=== PATIENT | female | born 1960 | race Caucasian/White ===

== ENCOUNTER 2021-05-20 07:58 | Day surgery (SDC) | payer OTHER ==
[2021-05-19 11:07] LABS: COVID AG,FIA SOURCE NASOPHARYNGEAL
[2021-05-19 11:10] LABS: BASOPHILS % (AUTO) 0.3 % (0.0-2.0); EOSINOPHILS % (AUTO) 3.4 % (1.0-6.0); HEMATOCRIT 32.3 % (36-46); HEMOGLOBIN 10.6 g/dL (12.0-16.0); LYMPHOCYTES # (AUTO) 0.9 K/uL (1.0-4.8); LYMPHOCYTES % (AUTO) 26.4 % (22.0-44.0); MEAN CORPUSCULAR HEMOGLOBIN 29.4 pg (26.0-34.0); MEAN CORPUSCULAR HGB CONC 32.8 G/dL (31.0-37.0); MEAN CORPUSCULAR VOLUME 90 fL (80-100); MONOCYTES # (AUTO) 0.5 K/uL (0.1-1.0); MONOCYTES % (AUTO) 14.6 % (2.0-9.0); NEUTROPHILS # (AUTO) 1.8 K/uL (1.8-7.7); NEUTROPHILS % (AUTO) 55.3 % (40.0-70.0); PLATELET COUNT (AUTO) 99 K/uL (150-450); RED BLOOD CELL COUNT(AUTO) 3.59 MIL/uL (4.00-5.20); RED CELL DISTRIBUTION WIDTH 15.3 % (11.5-14.5)
[2021-05-19 11:25] LABS: INR 1.4 (0.9-1.1); PROTHROMBIN TIME 14.7 SEC (9.4-11.6)
[2021-05-19 11:35] LABS: ANION GAP 9 mmol/L (8-16); CALCIUM, TOTAL 8.8 mg/dL (8.8-10.5); CARBON DIOXIDE 25 mmol/L (22-29); CHLORIDE 102 mmol/L (98-107); CREATININE 0.58 mg/dL (0.60-1.30); GLOMERULAR FILTR. RATE CALC > 60 mL/min (>60); GLUCOSE,RANDOM 109 mg/dL (70-110); SODIUM SERUM 136 mmol/L (136-145); UREA NITROGEN, BLOOD 13 mg/dL (7-18)
[2021-05-19 11:39] LABS: ALANINE AMINOTRANSFERASE 44 U/L (12-78); ALKALINE PHOSPHATASE 79 U/L (46-116); ASPARTATE AMINOTRANSFERASE 56 U/L (15-37); BILIRUBIN,TOTAL 0.9 mg/dL (0.1-1.0); TOTAL PROTEIN, SERUM 8.5 g/dL (6.4-8.2)
[~2021-05-20] VITALS: Ht 170.2 cm; Wt 81.8 kg
[~2021-05-20 07:58] MED LIST: APIX5TAB PO; ATOR40TA71 PO; FLEC50TA3 PO; FOLI-130 PO; FURO20TA4 PO; MAGN250T9 PO; METO-408 PO; MULT-1387 PO; POTA20TA83 PO; RINGERS SOLUTION,LACTATED 500 ML IV ONE; SODIUM CHLORIDE 0.9% 1,000 ML ONE; SPIR-37 PO; THIA100T92 PO
[2021-05-20] MEDS ORDERED: SODIUM CHLORIDE 0.9% 1,000 ML IV ONE (08:30)
[2021-05-20 13:31] LABS: SPECIMENTYPE,BODY FLUID PARACENTESIS
[2021-05-20 14:02] LABS: APPEARANCE,SPUN,BODY FLUID CLEAR (CLEAR); APPEARANCE,UNSPUN,BODY FLUID HAZY (CLEAR); COLOR,BODY FLUID YELLOW (LT YELLOW); TOTAL VOLUME,BODY FLUID 3125 mL
[2021-05-20 14:10] LABS: LYMPHOCYTES,BODY FLUID 46 %; MONOCYTES,BODY FLUID 3 %; NEUTROPHILS,BODY FLUID 5 %; OTHER CELLS,BODY FLUID MESOTHELIALS
[2021-05-20 14:12] LABS: BASOPHILS,BODY FLUID 0 %; EOSINOPHILS,BF (ANAL) 0 %
[2021-05-20 14:14] LABS: WBC, BODY FLUID 62 /cu. mm.
== END 2021-05-20 12:10 | disposition home or self-care (01) ==
LOC: SDS 07:58
PROVIDERS: ATTEND Radiology Body Imaging
DX: R18.8 Other ascites (principal); I48.91 Unspecified atrial fibrillation; Z98.890 Other specified postprocedural states; Z87.891 Personal history of nicotine dependence; E78.00 Pure hypercholesterolemia, unspecified; Z79.899 Other long term (current) drug therapy
CPT/HCPCS: 36415; 49083; 80053; 82042; 84157; 85025; 85610; 85730; 87015; 87070; 87205; 87206; 87426; 88108; 89051; 93005; C1729; C9803; J7030; J7120; 76942